=== PATIENT | male | born 1990 | race Caucasian/White ===

== ENCOUNTER 2019-04-28 23:32 | Observation (INO) | payer BC, OTHER ==
[2019-04-28] MEDS ORDERED: Tetracaine HCl/PF 0.5% 4 ML Bottle EYEBOTH ONE (23:54)
[2019-04-28] MEDS ORDERED: Sodium Chloride 0.9% 1,000 ML IV ONE (23:54)
[2019-04-28] MEDS ORDERED: Sodium Chloride 0.9% 10 ML Syringe FLUSH PRN (23:54)
[2019-04-28] MEDS ORDERED: Sodium Chloride 0.9% 2.5 ML Syringe FLUSH PRN (23:54)
[2019-04-28] MEDS ORDERED: Morphine 2 MG/ML Syringe IVPUSH ONE (23:54)
[2019-04-28] MEDS ORDERED: Tetracaine HCl/PF 0.5% 4 ML Bottle ONE (23:55)
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
[2019-04-29] MEDS ORDERED: Ketorolac 30 MG/ML SDV IVPUSH ONE (00:31)
[2019-04-29] MEDS ORDERED: Ondansetron 4 MG Tab.DIS PO PRN (00:56)
[2019-04-29] MEDS ORDERED: Morphine 10 MG/ML Syringe IVPUSH ONE (00:56)
[2019-04-29] MEDS ORDERED: Ondansetron 4 MG/2 ML SDV IVPUSH PRN (00:56)
[2019-04-29] MEDS ORDERED: Acetaminophen/HYDROcodone 325-5 MG Tab PO PRN (00:56)
[2019-04-29] MEDS ORDERED: Lactated Ringers 1,000 ML IV SCH (01:00)
[2019-04-29] MEDS: Bacitracin Oint 28.35 GM Tube TOP SCH ×2 (01:52→06:45)
[2019-04-29] MEDS ORDERED: Morphine 2 MG/ML Syringe IVPUSH PRN (05:15)
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
== END 2019-04-29 11:30 | disposition home or self-care (01) ==
LOC: MW.ED 23:32 → MW.MS 04-29 00:39
PROVIDERS: ADMIT Surgery; ATTEND Surgery
DX: T23.192A Burn of first degree of multiple sites of left wrist and hand, initial encounter (principal); T22.111A Burn of first degree of right forearm, initial encounter; T20.10XA Burn of first degree of head, face, and neck, unspecified site, initial encounter; T20.111A Burn of first degree of right ear [any part, except ear drum], initial encounter; T24.121A Burn of first degree of right knee, initial encounter; T20.16XA Burn of first degree of forehead and cheek, initial encounter; T20.17XA Burn of first degree of neck, initial encounter; T22.151A Burn of first degree of right shoulder, initial encounter; X03.8XXA Other exposure to controlled fire, not in building or structure, initial encounter
CPT/HCPCS: 96361; 96365; 96375; 99284; A9270; J1885; J2270; J7040; J7120; 99285

== ENCOUNTER 2021-05-15 13:16 | Emergency (ER) | payer SELFPAY ==
[2021-05-15] MEDS ORDERED: Lidocaine 1% 10 ML MDV INJECT ONE (13:35)
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
[2021-05-15] MEDS ORDERED: Diphtheria,Pertussis(Acell),Tetanus Vaccine 0.5 ML Syringe IM ONE (14:31)
== END 2021-05-15 15:06 | disposition home or self-care (01) ==
LOC: MW.ED 13:16
DX: L02.512 Cutaneous abscess of left hand (principal); Z23 Encounter for immunization
CPT/HCPCS: 26010; 90471; 90715; 99282-25

== ENCOUNTER 2021-11-13 00:42 | Emergency (ER) | payer SELFPAY ==
[2021-11-13] MEDS ORDERED: Lidocaine/EPINEPHrine/Tetracaine Soln 1 ML TOP ONE (01:43)
== END 2021-11-13 03:06 | disposition home or self-care (01) ==
LOC: MW.ED 00:42
DX: S01.81XA Laceration without foreign body of other part of head, initial encounter (principal); F10.129 Alcohol abuse with intoxication, unspecified; W00.9XXA Unspecified fall due to ice and snow, initial encounter
CPT/HCPCS: 12013; 70450; 70450-26; 99283-25